=== PATIENT | male | born 1985 | race Hispanic/Latino ===

== ENCOUNTER 2021-11-06 09:17 | Emergency (ER) | payer SELFPAY ==
[2021-11-06] VITALS (10 sets, daily range): BP systolic 130–147; BP diastolic 88–104
[~2021-11-06] VITALS: Ht 152.4 cm; Wt 68.0 kg
[2021-11-06 10:02] LABS: HEMOGLOBIN 16.8 g/dl (14.0-18.0); IMMATURE GRANULOCYTES 0.2 % (0.0-5.0); MEAN CELL VOLUME 92.1 fL CALC (80.0-100.0); MEAN CORPUSCULAR HGB 32.2 pG CALC (26.0-32.0); NEUT# 4.31 thou/uL (1.82-7.42); RED BLOOD COUNT 5.21 mill/uL (4.70-6.10); RED CELL DISTRI WIDTH 11.5 % (11.5-15.5)
[2021-11-06 10:39] LABS: ALBUMIN 4.4 g/dL (3.2-5.0); ALKALINE PHOSPHATASE 124 u/l (38-126); AMYLASE 81 u/l (30-110); ANION GAP 11 (6-22 (CALC)); BILIRUBIN, TOTAL 2.3 mg/dL (0.0-1.4); BUN 10 mg/dL (9-20); BUN/CREATININE RATIO 16 (12-20 (CALC)); CARBON DIOXIDE 28 mmol/l (22-30); CHLORIDE 100 mmol/l (95-108); CREATININE 0.7 mg/dL (0.7-1.3); ETHYL ALCOHOL 0 mg/dl (0-30); GFR > 60 ML/MIN (>=60 (CALC)); GFR FOR AFR.AMER. > 60 ML/MIN (>=60 (CALC)); LIPASE 110 u/l (23-300); POTASSIUM 3.7 mmol/l (3.5-5.1); SGOT/AST 97 u/l (17-59); SODIUM 136 mmol/l (137-146); TOTAL PROTEIN 7.8 g/dL (6.3-8.2)
[2021-11-06 11:33] LABS: URINE BILIRUBIN - DIPSTICK NEGATIVE (NEGATIVE); URINE BLOOD DIPSTICK NEGATIVE (NEGATIVE); URINE COLOR YELLOW; URINE GLUCOSE - DIPSTICK NEGATIVE (NEGATIVE); URINE KETONE NEGATIVE (NEGATIVE); URINE LEUK ESTERASE NEGATIVE (NEGATIVE); URINE PROTEIN - DIPSTICK NEGATIVE (NEG-TRACE); URINE SPECIFIC GRAVITY 1.025; URINE UROBILINOGEN - DIPSTICK 0.2 E.U./dL (0.2)
[2021-11-06 11:36] LABS: URINE NITRITE - DIPSTICK NEGATIVE (Negative)
[2021-11-06] MEDS ORDERED: HYDROCO/APAP1 TA9 PO (13:07)
[2021-11-06] MEDS ORDERED: LEVAQUIN750 M1 PO (13:07)
[2021-11-06] MEDS ORDERED: ZOFRAN4 MG/TAB PO (13:07)
== END 2021-11-06 13:34 | disposition home or self-care (01) | DRG 313 ==
LOC: ED 09:17
DX: R07.89 Other chest pain (principal); K80.20 Calculus of gallbladder without cholecystitis without obstruction; R74.8 Abnormal levels of other serum enzymes; F10.10 Alcohol abuse, uncomplicated; Z20.822 Contact with and (suspected) exposure to COVID-19
CPT/HCPCS: S0164

== ENCOUNTER 2023-09-06 02:36 | Emergency (ER) | payer SELFPAY ==
[2023-09-06] VITALS (9 sets, daily range): BP systolic 88–156; BP diastolic 64–108
[~2023-09-06] VITALS: Ht 152.4 cm; Wt 63.0 kg
[~2023-09-06 02:36] MED LIST: HYDROCO/APAP1 TA9 PO; LEVAQUIN750 M1 PO; ZOFRAN4 MG/TAB PO
[2023-09-06] MEDS ORDERED: PROCHLORPERAZINE EDISYLATE 10 MG/2 ML SDV IV ONE (03:05)
[2023-09-06] MEDS ORDERED: SODIUM CHLORIDE 0.9% 1,000 ML IV ONE (03:05)
[2023-09-06 03:27] LABS: URINE BLOOD DIPSTICK Negative (NEGATIVE); URINE COLOR Yellow; URINE GLUCOSE - DIPSTICK 100 mg/dL (NEGATIVE); URINE KETONE Negative (NEGATIVE); URINE LEUK ESTERASE Negative (NEGATIVE); URINE NITRITE - DIPSTICK Negative (Negative); URINE PROTEIN - DIPSTICK 100 mg/dL (NEG-TRACE); URINE SPECIFIC GRAVITY >=1.030; URINE UROBILINOGEN - DIPSTICK 0.2 E.U./dL (0.2)
[2023-09-06 03:27] LABS: BASO% 0.3 % (0-3); EOS% 0.1 % (0-8); HEMATOCRIT 46.4 % (39.0-50.0); HEMOGLOBIN 16.6 g/dl (14.0-18.0); IMMATURE GRANULOCYTES 0.3 % (0.0-5.0); LYMPH% 30.3 % (15-41); MEAN CELL VOLUME 91.9 fL CALC (80.0-100.0); MEAN CORPUSCULAR HGB 32.9 pG CALC (26.0-32.0); MEAN CORPUSCULAR HGB CONC 35.8 g/dL CAL (32.0-36.0); MONO% 9.2 % (2-13); NEUT# 4.05 thou/uL (1.82-7.42); NEUT% 59.8 % (42-76); RED BLOOD COUNT 5.05 mill/uL (4.70-6.10); RED CELL DISTRI WIDTH 13.6 % (11.5-15.5)
[2023-09-06 03:28] LABS: URINE HYALINE CAST RARE lpf (NONE-RARE); URINE RENAL EPITHELIAL CELLS RARE hpf
[2023-09-06 03:40] LABS: ANION GAP 15 (6-22 (CALC)); BUN 12 mg/dL (9-20); BUN/CREATININE RATIO 15 (12-20 (CALC)); CARBON DIOXIDE 26 mmol/l (22-30); CHLORIDE 96 mmol/l (95-108); CPK 131 u/l (55-170); CREATININE 0.8 mg/dL (0.7-1.3); ETHYL ALCOHOL 246 mg/dl (0-30); GFR FOR AFR.AMER. > 60 ML/MIN (>=60 (CALC)); GFR OTHER RACES > 60 ML/MIN (>=60 (CALC)); MAGNESIUM 1.6 mg/dL (1.6-2.3); POTASSIUM 3.9 mmol/l (3.5-5.1); SODIUM 133 mmol/l (137-146); TOTAL PROTEIN 6.9 g/dL (6.3-8.2)
[2023-09-06 03:41] LABS: ALBUMIN 3.5 g/dL (3.2-5.0); ALKALINE PHOSPHATASE 252 u/l (38-126); BILIRUBIN, TOTAL 3.9 mg/dL (0.2-1.3); SGOT/AST 706 u/l (17-59)
== END 2023-09-06 06:19 | disposition home or self-care (01) | DRG 897 ==
LOC: ED 02:36
PROVIDERS: Family Medicine
DX: F10.129 Alcohol abuse with intoxication, unspecified (principal); K70.10 Alcoholic hepatitis without ascites; Y90.8 Blood alcohol level of 240 mg/100 ml or more; Z72.0 Tobacco use

== ENCOUNTER 2024-02-18 12:15 | Inpatient (IN) | payer SELFPAY ==
[2024-02-18] VITALS (32 sets, daily range): BP systolic 117–166; BP diastolic 76–121
[~2024-02-18] VITALS: Ht 152.4 cm; Wt 83.9 kg
--- NOTE | 2024-02-18 12:25 | NUR ---
PATIENT TO ROOM 14 VIA WHEELCHAIR
[2024-02-18] MEDS ORDERED: Pantoprazole Sodium 40 MG VIAL (Protonix) IV ONE (12:30)
[2024-02-18] MEDS ORDERED: ONDANSETRON HCl 4 MG/2 ML SDV IV ONE (12:30)
[2024-02-18] MEDS ORDERED: LACTATED RINGER'S 1,000 ML IV ONE ×2 (12:30)
[2024-02-18] MEDS ORDERED: FAMOTIDINE 10MG/ML 2ML SDV IV ONE (12:30)
[2024-02-18 12:39] LABS: BASO% 0.6 % (0-3); EOS% 0.1 % (0-8); HEMATOCRIT 44.3 % (39.0-50.0); HEMOGLOBIN 15.2 g/dl (14.0-18.0); IMMATURE GRANULOCYTES 0.2 % (0.0-5.0); LYMPH% 15.6 % (15-41); MEAN CELL VOLUME 90.2 fL CALC (80.0-100.0); MEAN CORPUSCULAR HGB CONC 34.3 g/dL CAL (32.0-36.0); MONO% 11.8 % (2-13); NEUT# 6.31 thou/uL (1.82-7.42); NEUT% 71.7 % (42-76); RED BLOOD COUNT 4.91 mill/uL (4.70-6.10); RED CELL DISTRI WIDTH 14.3 % (11.5-15.5)
[2024-02-18 12:49] LABS: ALKALINE PHOSPHATASE 149 u/l (38-126); ANION GAP 20 (6-22 (CALC)); BILIRUBIN, TOTAL 2.4 mg/dL (0.2-1.3); BUN 9 mg/dL (9-20); BUN/CREATININE RATIO 10 (12-20 (CALC)); CARBON DIOXIDE 25 mmol/l (22-30); CHLORIDE 92 mmol/l (95-108); CREATININE 0.9 mg/dL (0.7-1.3); ESTIMATED GFR 114 ML/MIN (>=90 (CALC)); ETHYL ALCOHOL 0 mg/dl (0-30); LIPASE 422 u/l (23-300); POTASSIUM 3.4 mmol/l (3.5-5.1); SGOT/AST 326 u/l (17-59); SODIUM 134 mmol/l (137-146)
[2024-02-18 12:58] LABS: ALBUMIN 5.2 g/dL (3.2-5.0); TOTAL PROTEIN 9.5 g/dL (6.3-8.2)
[2024-02-18] MEDS ORDERED: chlordiazePOXIDE HCL 25 MG CAP PO ONE (13:00)
[2024-02-18] MEDS ORDERED: LORazepam 2 MG/ML IV ONE ×2 (13:00→14:35)
[2024-02-18] MEDS ORDERED: MAGNESIUM HYDROXIDE 30 ML UDC PO PRN (14:40)
[2024-02-18] MEDS ORDERED: SODIUM CHLORIDE 0.9% 1,000 ML IV PRN (14:40)
[2024-02-18] MEDS ORDERED: IBUPROFEN 600 MG/TAB PO PRN (14:45)
--- NOTE | 2024-02-18 14:57 | NUR ---
PATIENT AWARE THAT HE IS GETTING ADMITTED. PATIENT STS THAT THE FIRST DOSE OF ATIVAN HELPED CALM DOWN SOME OF HIS TREMORS. PATIENT HAS THE TREMORS, FACE IS RED WITH A BRUISE TO UPPER LIP.
[2024-02-18] MEDS ORDERED: LORazepam 2 MG/ML IV PRN (15:10)
[2024-02-18] MEDS ORDERED: chlordiazePOXIDE HCL 25 MG CAP PO PRN (15:10)
[2024-02-18] MEDS ORDERED: MULTIPLE VITAMIN 10 ML,THIAMINE HCL 100 MG in DEXTROSE 5% / 0.9% NACL 1,000 ML IV SCH (15:30)
--- NOTE | 2024-02-18 15:32 | NUR ---
INFORMED PATIENT THAT HE IS GOING TO BE ADMITTED. PATIENT STS THAT HIS
--- NOTE | 2024-02-18 16:26 | NUR ---
PATIENT APPEARS COMFORTABLE AT THIS TIME. CALL USE WITHIN REACH.
--- NOTE | 2024-02-18 17:02 | NUR ---
GAVE REPORT TO MARK EPPS
--- NOTE | 2024-02-18 17:36 | NUR ---
PATIENT ARRIVED TO FLOOR, CIWA ASSESSMENT DONE IMMEDIATELY WITH TRANSLATION FROM [facility], PATIENT REPORTING HALLUCINATIONS. FULL CIWA SCORE 23. DR INFANTE NOTIFIED, STATES PT NEEDS TO GO TO ICU, REPORT GIVEN TO ELIZABETH EPPS. PATIENT STABLE AT TIME OF TRANSFER.
--- NOTE | 2024-02-18 17:44 | NUR ---
REPORT RECEIVED FROM SUPRIYA FLORES
--- NOTE | 2024-02-18 17:50 | NUR ---
male pt received to ICU bed 5 via wc accompanied by nurse Evelio Villa RN and ticket collector or usher's x2; ambualtory to bed; ABIMAEL Awad at bedside to interpret; pt alert and oriented; no n/v noted at this time; pt admits to headache and chest pain upon deep breathing; resp even and unlabored; lungs clear; skin color wnl; ra; hr reg; strong pulses; no edema noted; st on monitor; abd soft with bs present; no bm noted per food writer; no urine to inspect at this time; urinal provided at bedside; #18 to rac with banana bag infusing without complication; no redness or edema noted at site; pt declining to remove shoes and pants, food writer unable to fully assess skin; pt noted with visible tremors; side rails padded at this time; plan of care/ meds explained; call light within reach;
[2024-02-18] MEDS ORDERED: LORazepam 40 MG in SODIUM CHLORIDE 180 ML IV PRN (18:55)
--- NOTE | 2024-02-18 19:30 | NUR ---
awake. no acute distress. has severe tremors. monitoring specialist shows sinus rhythm. ivf infusing per rac site. dair po intake. has not voided. fall precautions cont.
--- NOTE | 2024-02-18 20:55 | NUR ---
LIBRUIM 25MG PO GIVEN FOR ETOH WITHDRAWALS.
[2024-02-19] VITALS (23 sets, daily range): BP systolic 120–193; BP diastolic 82–156
--- NOTE | 2024-02-19 00:01 | NUR ---
eyes closed. no distress. ivf infusing well.
--- NOTE | 2024-02-19 02:00 | NUR ---
resting quietly. resps even & unlabored. no distress.
--- NOTE | 2024-02-19 02:35 | NUR ---
libruim 25mg po given for etoh withdrawals.
--- NOTE | 2024-02-19 05:20 | NUR ---
lab here. blood drawn.
[2024-02-19 06:40] LABS: BILIRUBIN, TOTAL 2.3 mg/dL (0.2-1.3); CREATININE 0.7 mg/dL (0.7-1.3); MAGNESIUM 1.8 mg/dL (1.6-2.3); POTASSIUM 3.7 mmol/l (3.5-5.1)
[2024-02-19 06:42] LABS: ALBUMIN 4.1 g/dL (3.2-5.0); TOTAL PROTEIN 7.1 g/dL (6.3-8.2)
--- NOTE | 2024-02-19 07:58 | NUR ---
PATIENT UP TO THE SIDE OF BED FOR BREAKFAST. PATIENT ALERT AND ORIENTED X 4. STATES HE DRINKS ABOUT 12 BEERS/DAY BUT RECENTLY DRANK 3 BOTTLES OF TEQUILA AND SINCE HAS BEEN HAVING PAIN. STATES PAIN LEVEL IS A 5, BUT DECLINES PAIN RELIEF MEASURES AT THIS TIME. LUNGS CLEAR TO ASCULTATION. BREATHING EVEN AND UNLABORED ON ROOM AIR. STRONG PERIPHERAL/PEDAL PULSES. SAFETY MEASURES IN PLACE INCLUDING SEIZURE PRECAUTIONS, BED IN LOW POSITION AND CALL LIGHT NEXT TO L LEG. NO APPARENT DISTRESS NOTED. WILL CONTINUE WITH PLAN OF CARE.
[2024-02-19] MEDS ORDERED: PANTOPRAZOLE SODIUM Sesquihydr 40 MG/TAB PO SCH (09:45)
--- NOTE | 2024-02-19 12:00 | NUR ---
PATIENT SITTING UP ON THE SIDE OF THE BED NEPHEW AT BEDSIDE. PATIENT IS CONCERNED ABOUT IV NOT "BEING IN". PATIENT ADVISED THAT IV IS IN THE VEIN. THIS VEHICLE ASSEMBLER FLUSHED AND PULL BACK ON THE IV TO SHOW BOTH PATIENT AND NEPHEW THE BLOOD RETURN (AND CATHETER IN VEIN). PATIENT AND NEPHEW VERBALIZED UNDERSTANDING. OFFERED TO PLACE IV IN ANOTHER SITE, PATIENT DECLINED. DOES NOT WANT TO BE POKED AGAIN BECAUSE OF THE NEEDLE. THIS VEHICLE ASSEMBLER DEMONSTRATED HOW THE NEEDLE RETRACTS AND ONLY THE CATHETER IS LEFT IN THE VEIN, PATIENT CONTINUED TO REFUSED. DENIES ADDITIONAL OCNCERNS AT THIS TIME. WILL CONTINUE TO MONITOR.
--- NOTE | 2024-02-19 13:58 | NUR ---
PATIENT APPEARS TO BE RESTING WITH EYES CLOSED. NO APPARENT DISTRESS NOTED. WILL CONTINUE [facility] PLAN OF CARE.
--- NOTE | 2024-02-19 14:21 | NUR ---
PATIENT AWAKE, WALKING AROUND THE ROOM RESTLESS. PATIENT REMINDED NOT TO WALK AROUND WITHOUT ASSISTANCE. PATIENT MORE AGITATED THAN USUAL. WILL MEDICATE ACCORDING TO EMAR.
--- NOTE | 2024-02-19 15:34 | NUR ---
PATIENT LYING IN BED PATIENT IS AGITATED AND INSISTING. THAT HE DOES NOT KNOW WHAT'S WRONG WITH THE IV. IT KEEPS BEEPING. AGAIN, REMINDED PATIENT THAT THE IV WILL BEEP WHEN THE CATHETER IS KINKED AND AGAIN, OFFERED TO PLACE ANOTHER IV. PATIENT DECLINED SAYING IT IS OKAY. PATIENT PROVIDED PILLOW FOR COMFORT, AND MEDICATED ACCORDING TO EMAR. NO ADDITIONAL CONCERNS AT THIS TIME. WILL CONTINUE TO MONITOR PATIENT.
--- NOTE | 2024-02-19 17:21 | NUR ---
PATIENT FOUND WALKING AROUND HIS ROOM LEAKING BLOOD EVERYWHERE HAVING PULLED OUT IV. PATIENT REMINDED OF THE IMPORTANCE OF HYDRATION/VITAMINS, VOICED UNDERSTANDING. AGREED TO REPLACE IV. NO OTHER ISSUES OR CONCERNS AT THIS TIME. WILL CONTINUE WITH PLAN OF CARE.
--- NOTE | 2024-02-19 19:30 | NUR ---
pt assessed at bedside at 1930 with foreign language instructor Saravanan from the language line #[id number]. pt assessed plan of care establiushed pt is currently not following directions and attempting to rip off his monitors. Pt does redirect. pt. attempts multiple times to leave . pt exlplained with foreign language instructor how important it is to stay, hospital security called and laundry housekeeper. pts nephew and niece are ate bedisde to help convince hi to stay. pt medicated with librium and ativan .
--- NOTE | 2024-02-19 20:20 | NUR ---
spoke with Amira HINES about pts trying to leave and being symptomaticwith withdrawels . pt reports blurry vision. beads of sweat on forehead and hypertensive. chauffeur #[id number] used to establish plan of care with pt and importance to not leave due to risk of seizures. . pt explained to stay in bed urinal at bedside and explained call kelsey. pt continues to pick at monitors. and wants pants on to leave. Dr. Ramirez ordered 2 mh of IV ativan now .
[2024-02-19] MEDS ORDERED: LORazepam 2 MG/ML IV SCH (20:30)
[2024-02-19] MEDS ORDERED: ENOXAPARIN SODIUM 40 MG/0.4 ML SYR SC SCH (21:00)
--- NOTE | 2024-02-19 21:16 | NUR ---
pt reassessed , pt reports with nephew translating as pt is haitian speaking . that his blurry vision has improved. no beads of sweat noted pt has, voided in urinal 775. blood pressure has imprioved diastolic was over 100 pt was 150s over /100 now 147/83 Heart rate has improved from ST to NSR HR 83. nephew states he will sleep and stay at bedside with pt tonight. security and trim crew supervisor aware. Pt not as shaky and seems a bit better. Pt is clearly requiring more ativan to link of DTs plan to start ativan gtt. later if needed.
--- NOTE | 2024-02-19 21:31 | NUR ---
rounded on pt , nephew and niece at bedide pt seems more comfortable less anxious. no shakes noted. Nephew instructed if he tries to D/C monitors etc or becomes more aggitated to please hit nurse button. checking on pt Q30min to 1 hr rounding. bed alarm on . sides of bed passedd with blankets for seizure precautions. all monitors and alrms on .
--- NOTE | 2024-02-19 22:00 | NUR ---
rounded on pt resting comfortably. IVF going at 100cc/hr. florence Yee sleeping at bedside.in a chair. all monitors on. NSR, all alarms on and safety measures in place. seizure precautions in place, bed rails padded.
[2024-02-20] VITALS (11 sets, daily range): BP systolic 134–155; BP diastolic 88–108
--- NOTE | 2024-02-20 00:02 | NUR ---
pt medicated for CIWA librium and ativan . pt had some visible shakes. , pt urinated 500 dark betty. nephew at bdside. yellow rn l and d sox applied pt insisted on standing to urinate pt was very unsteady. pts underwear removed and put in pt bag. and pt voided at the side of the bed.
--- NOTE | 2024-02-20 00:37 | NUR ---
rounded on pt. he is awake taliing with nephew Joselito. Asked if he knows where he is pt does not know, per translation with Joselito. He states he forgets where he is. Pt is reoriented. and is on his phone txting or internet. nephew at bedside. in chair. all monitors on , all safety measures and seizure precautions in place, bed alarm on . IVF at 100cc/hr of NS.
--- NOTE | 2024-02-20 01:57 | NUR ---
rounded on pt. nephew at bedside , pt had been talkng with nephew and wanted to get oob , pt stated he wanted his underwear on pt was given his underwear nephew pu them on him pt was tucked back in bed with blankets. pts IV is still intact IVF going at 100cc/hr all monitors on , an EKG lead replaced. Pt awake. and trying to get on his phone . recommended to florence Yee that he tries to sleep and put phone down. florence translated to pt. It is a good idea to sleep and get some rest since it is 2 am.
--- NOTE | 2024-02-20 02:53 | NUR ---
checked on pt , lying down but awake, alcoholic anonymous AA in [place] info printed from the internet and given to florence Yee to call and ask about getting pt a armenian speaking AA, sponsor etc.
--- NOTE | 2024-02-20 04:55 | NUR ---
pt pciking at all monitors to pull them, off nephew helping pt by not letting him pull off m,onitors. pt scored on CIWA. moderate visible shaking while drinking water with librium. will reassess in an hour for possibole IV ativan pt ascored high on ciwa
[2024-02-20 05:32] LABS: HEMATOCRIT 41.8 % (39.0-50.0); HEMOGLOBIN 14.6 g/dl (14.0-18.0); MEAN CELL VOLUME 93.1 fL CALC (80.0-100.0); MEAN CORPUSCULAR HGB 32.5 pG CALC (26.0-32.0); MEAN CORPUSCULAR HGB CONC 34.9 g/dL CAL (32.0-36.0); RED BLOOD COUNT 4.49 mill/uL (4.70-6.10); RED CELL DISTRI WIDTH 14.5 % (11.5-15.5)
[2024-02-20 05:44] LABS: ALBUMIN 4.5 g/dL (3.2-5.0); BILIRUBIN, TOTAL 1.6 mg/dL (0.2-1.3); CREATININE 0.6 mg/dL (0.7-1.3); MAGNESIUM 1.8 mg/dL (1.6-2.3); POTASSIUM 3.5 mmol/l (3.5-5.1); TOTAL PROTEIN 7.7 g/dL (6.3-8.2)
--- NOTE | 2024-02-20 06:04 | NUR ---
pt recieved 1mg of ativan for aggitation and sleeplessness. pt reports he cannot sleep and he suffers from this at home as well. Pt slept a dew hours this evening after 2mg of ativan 1 x dose earlier. shakes have improved. Pt is still restless.
--- NOTE | 2024-02-20 07:17 | NUR ---
PATIENT LYING IN BED. ALEXANDER PRUITT, AT BEDSIDE. ASSESSMENT COMPLETE. PATIENT ALERT AND ORIENTED X 4. DENIES PAIN. LUNGS CLEAR TO ASCULTATION. BREATHING EVEN AND UNLABORED ON ROOM AIR. PATIENT AGITATED AND ATTEMPTING TO LEAVE. DISCUSSED WITH PATIENT THAT HE IS WITHDRAWING FROM ALCOHOL. PATIENT VERBALIZED UNDERSTANDING. ALEXANDER TRANSLATING. PATIENT STATED THAT HE "WANTS TO STOP DRINKING" AND AFTER REDIRECTION HAS CALMED DOWN. PATIENT WAS PLACED BACK IN BED, AGREED TO CARDIAC MONITORING. SAFETY MEASURES IN PLACE INCLUDING SEIZURE PRECAUTIONS, BED IN LOW POSITION, AND CALL LIGHT NEXT TO L HAND. NO ADDITIONAL CONCERNS AT THIS TIME. WILL CONTINUE WITH PLAN OF CARE.
--- NOTE | 2024-02-20 08:04 | NUR ---
ROUNDING COMPLETE. PATIENT VISIBLY CALMER, EATING BREAKFAST. DENIES CONCERNS AT THIS TIME. WILL CONTINUE TO MONITOR.
--- NOTE | 2024-02-20 08:56 | NUR ---
Patient decides to leave AMA. Multiple attempts made by this engineering writer, Mary Garner LPN and Dr. Waldron to ecourage patient to remain here for continued treatment. Explained to patient and Joselito henriquez, all risks of leaving against medical advice including . Pt verbalized understanding of all risks. Pt also encouraged to return to [facility] at any time, especially if symptoms continue or become worse. Pt verbalized understanding. Joselito Henriquez, at bedside to translate and take patient home. Patient left via WC.
== END 2024-02-20 08:56 | disposition left against medical advice (07) | DRG 433 ==
LOC: ED 12:15 → ED-I 14:25 → ED 14:42 → MS2 14:43 → ICU 17:50
PROVIDERS: Nurse Practitioner; Nurse Practitioner Family; ADMIT Internal Medicine; ATTEND Internal Medicine
DX: K70.10 Alcoholic hepatitis without ascites (principal); F10.139 Alcohol abuse with withdrawal, unspecified; Y90.0 Blood alcohol level of less than 20 mg/100 ml; R16.0 Hepatomegaly, not elsewhere classified; K70.0 Alcoholic fatty liver; Z87.891 Personal history of nicotine dependence
CPT/HCPCS: J1650; J2060; J2470; Q9967